=== PATIENT | female | born 1940 | race Caucasian/White ===

== ENCOUNTER 2017-04-23 09:32 | Emergency (ER) | payer OTHER, MEDICARE ==
--- NOTE | 2017-04-23 09:47 | CPEKG ---
Heart Rate: 68 RR Interval: 882 P-R Interval: 140 QRSD Interval: 72 QT Interval: 388 QTC Interval: 413 P Rueter: 17 QRS Rueter: 14 T Wave Rueter: 20 EKG Severity - OTHERWISE NORMAL ECG - EKG Impression: SINUS RHYTHM EKG Impression: LOW VOLTAGE IN FRONTAL LEADS Electronically Signed By: Marlene Correa 23-Apr-2017 16:54:07
[2017-04-23 10:07] LABS: % IMMATURE GRANULYOCYTES 0.4 % (0.0-1.1); ABSOLUTE IMMATURE GRANULOCYTES 0.02 10^3/uL (0.00-0.10); ADD DIFF? NO; ADD MORPH? NO; ADD SCAN? NO; ATYPICAL LYMPHOCYTE FLAG 10 (0-99); FRAGMENT RBC FLAG 0 (0-99); HEMATOCRIT 38.8 % (38.0-47.0); HEMOGLOBIN 12.1 g/dL (12.6-16.3); LEFT SHIFT FLG 0 (0-99); LIPEMIA HEMOLYSIS FLAG 80 (0-99); MEAN CELL HEMOGLOBIN 28.1 pg (27.9-34.1); MEAN CELL HEMOGLOBIN CONCENTR. 31.2 g/dL (32.4-36.7); MEAN PLATELET VOLUME 9.9 fL (8.7-11.7); PLATELET CLUMPS FLAG 10 (0-99); PLATELET COUNT 268 10^3/uL (150-400); RED BLOOD CELL COUNT 4.31 10^6/uL (4.18-5.33); RED CELL DISTRIBUTION WIDTH 16.4 % (11.5-15.2)
[2017-04-23 10:13] LABS: ANION GAP 13 mEq/L (8-16); CALCIUM 10.2 mg/dL (8.5-10.4); CARBON DIOXIDE 23 mEq/l (22-31); CHLORIDE 105 mEq/L (97-110); CREATININE 1.5 mg/dL (0.6-1.0); GLOMERULAR FILTRATION RATE 34; GLUCOSE 101 mg/dL (70-100); POTASSIUM 4.7 mEq/L (3.5-5.2); SODIUM 141 mEq/L (134-144)
--- NOTE | 2017-04-23 10:15 | EDPHY ---
H & P Stated Complaint: CP HPI/ROS: CHIEF COMPLAINT: Chest pain HISTORY OF PRESENT ILLNESS: This patient is a 76 year old female complaining of an episode of chest pain earlier this morning, now resolved. While driving to her ECT treatment appointment this morning, she developed severe chest pain which felt like bad indigestion with associated pain in her jaws and teeth lasting 20 minutes. When she arrived at ECT appointment, they directed her to ED for further evaluation. Her symptoms are now completely resolved. She has not had anything to eat today. She denies difficulty breathing, nausea, or other associated symptoms. She had a similar episode in May, and had a subsequent cardiac catheterization done at [facility] in [place] which was negative, showing no evidence of coronary artery disease or other abnormalities. She was prescribed Nitro following that procedure and took some this morning which she feels slightly resolved her symptoms. REVIEW OF SYSTEMS: A ten point review of systems was performed and is negative with the exception of the items mentioned in the HPI. Past medical history: Depression. Heart catheterization 05/2016. Central sleep apnea. Concussion 1996. Reviewed past medical records including catheterization report from 05/2016. Past surgical history: Hysterectomy. C5 anterior fusion. Right ankle surgery, eye surgeries, abdominoplasty Family history: Father at age 62 with "heart disease". Patient's mother and sister treated for depression. Social history: Lives in [place]. . No tobacco or alcohol use. General Appearance: Alert. Vital signs reviewed. Eyes: Pupils equal and round, no conjunctival injection, no discharge. Anicteric. ENT, Mouth: Mucous membranes are moist, no oropharyngeal erythema or edema. Neck: No lymphadenopathy, supple. Respiratory: Lungs are clear to auscultation; no wheezes, rales, or rhonchi. Cardiovascular: Regular rate and rhythm; no murmur, rub, or gallop. Gastrointestinal: Abdomen is soft and nontender, no masses or organomegaly, bowel sounds normal. Skin: Warm and dry, no rashes on exposed skin, normal color. Back: Nontender to palpation over the thoracolumbar spine. No CVAT. Extremities: No lower extremity edema, no calf tenderness or swelling. Neurological: Alert and oriented. Moving all four extremities easily and equally. Psychiatric: Normal affect. - Personal History Current Tetanus Diphtheria and Acellular Pertussis (TDAP): Unsure - Medical/Surgical History Hx Asthma: No Hx Chronic Respiratory Disease: Yes Hx Diabetes: No Hx Cardiac Disease: No Hx Renal Disease: No Hx Cirrhosis: No Hx Alcoholism: No Hx HIV/AIDS: No Hx Splenectomy or Spleen Trauma: No Other PMH: depression, ECT, JIMMY - Social History Smoking Status: Never smoked Additional Social History: Lives with her in [place]. No tobacco or alcohol use. No illicits. Constitutional: Initial Vital Signs Temperature (C) 36.7 C 04/23/17 09:48 Heart Rate 68 04/23/17 09:48 Respiratory Rate 18 04/23/17 09:48 Blood Pressure 152/99 H 04/23/17 09:48 O2 Sat (%) 93 04/23/17 09:48 O2 Delivery Mode Room Air Medical Decision Making - Diagnostics EKG Interpretation: 12 lead EKG is interpreted in Trace master View by emergency department physician. Imaging Results: Chest x-ray shows cardiomegaly, hiatal hernia. No acute pulmonary disease. I reviewed the radiology report. I reviewed the images in PACs. Imaging: I viewed and interpreted images myself ED Course/Re-evaluation: Received and reviewed prior catheterization and echo records from [facility]. Cardiac catheterization in 2016 did not show critical stenosis in any vessels. Blood work shows a creatinine of 1.5. No previous labs for review. She will need to have this followed up with her primary care provider. EKG without ischemic changes. Initial troponin normal. She has no pain at the time of my evaluations. She does have a hiatal hernia and that could be the etiology of her earlier discomfort. 12:22 Reassessed patient. She has had no chest pain while in the department. She is not short of breath and has not required oxygen. She was offered hospitalization for serial troponins and cardiac monitoring. She does not think that this pain stems from her heart. She is able to make her own medical decisions and understands the risks and benefits of hospitalization in this setting. She understands that if this is an acute coronary syndrome she could have ongoing chest pain, myocardial infarction, and even . She does not want to remain in the hospital. Both she and her are comfortable returning home. We reviewed the danger signs that should prompt them to return for re-evaluation. Differential Diagnosis: Chest pain including but not limited to hiatal hernia, GERD, myocardial ischemia , pulmonary embolus, chest wall pain, pleural inflammation and pulmonary infectious causes. - Data Points Laboratory Results: Laboratory Results 04/23/17 09:06 04/23/17 09:06 Departure - Departure Disposition: Home, Routine, Self-Care Clinical Impression: Chest pain Qualifiers: Chest pain type: other chest pain Qualified Code(s): R07.89 - Other chest pain Condition: Good Instructions: Chest Pain (ED) Additional Instructions: 1. Follow up with your cleaning specialist regarding today's visit. Call him for an appointment this week. 2. Return to the Emergency Department for returning chest pain or if you develop shortness of breath, fever, vomiting, or other worsening of condition. Referrals: MIRANDA ORTIZ [Other] - As per Instructions Donovan Alas MD [Other] - As per Instructions Report Scribed for: Marlene Correa Report Scribed by: Fabby Farias Date of Report: 04/23/17 Time of Report: 10:33 Physician Review and Approval Statement: 04/24/17 12:24 Portions of this note were transcribed by the medical surgery nurse. I, Dr. Marlene Correa, personally performed the history, physical exam, and medical decision- making; and confirmed the accuracy of the information in the transcribed note.
[2017-04-23 10:24] LABS: TROPONIN I 0.024 ng/mL (0-0.034)
[2017-04-23 12:49] VITALS: BP 128/78; PULSE 67; RESP 16; TEMP 98.4; O2SAT 94
== END 2017-04-23 12:46 | disposition home or self-care (01) ==
LOC: EDUNIT#
DX: R07.89 Other chest pain (principal)